=== PATIENT | male | born 1950 | race Caucasian/White ===

== ENCOUNTER → 2016-09-08 | Outpatient (CLI) | payer MEDICARE, OTHER ==
--- NOTE | 2016-09-08 14:06 | MR ---
EXAMINATION TYPE: MR lumbar spine wo con DATE OF EXAM: 09/08/2016 1:51 PM COMPARISON: NONE HISTORY: low back pain Multiplanar, MultiSpin echo imaging of the lumbar spine was performed. L1-L2: Normal disc appearance without desiccation. No herniation, protrusion or disc bulging. No ca nal stenosis is present. Foramina are patent bilaterally. L2-L3: Normal disc appearance without desiccation. No herniation, protrusion or disc bulging. No ca nal stenosis is present. Foramina are patent bilaterally. L3-L4: Normal disc appearance without desiccation. No herniation, protrusion or disc bulging. No ca nal stenosis is present. Foramina are patent bilaterally. L4-L5: Moderate disc desiccation. Posterior disc bulge with annular tear. Mild effacement ventral sac . No evidence for allen herniation or central stenosis. Mild left foraminal encroachment. Grade 1 ant erolisthesis of L4 and L5 of 2 mm related to severe facet joint arthropathy. L5-S1: Severe disc desiccation. Grade 1 retrolisthesis of L5 on S1 measuring 7.4 mm. Moderate right p aracentral disc bulge with encapsulating spur resulting in hard disc. There is right lateral recess s tenosis and right foraminal encroachment. Lumbar segments are intact. No paraspinal masses are identified. Conus medullaris has a normal appe arance. IMPRESSION: 1. Degenerative disc disease as discussed. 2. Right paracentral disc endplate complex resulting in right lateral recess stenosis and right daina inal encroachment. 3 multilevel listhesis as noted.
== END | disposition home or self-care (01) ==
LOC: RADMRIMAIN 13:17
PROVIDERS: ATTEND Internal Medicine
DX: M48.06 Spinal stenosis, lumbar region (principal); M51.36 Other intervertebral disc degeneration, lumbar region; M43.16 Spondylolisthesis, lumbar region
CPT/HCPCS: 72148

== ENCOUNTER 2017-04-09 19:50 | Observation (INO) | payer MEDICARE, OTHER ==
--- NOTE | 2017-04-09 21:21 | ED ---
Extremity Problem HPI - General Source: patient Mode of arrival: ambulatory Limitations: no limitations <Tracey Crhistina - Last Filed: 04/10/17 02:04> <Jakub Nacsimento - Last Filed: 04/12/17 01:16> - General Chief complaint: Extremity Problem,Nontraumatic Stated complaint: LE edema Time Seen by Provider: 04/09/17 21:10 - History of Present Illness Initial comments: 66 year-old male patient presents to the emergency department today for complaints of bilateral lower extremity swelling. Patient states that he has had foot swelling for the last couple of months however over the last 2-3 days he started to have the swelling move up into his lower legs. Patient states that his legs feel tight and uncomfortable. He denies any difficulty breathing , orthopnea, or shortness of breath with activity. He denies any cough or congestion. Denies any hemoptysis. Denies any chest pain or tightness. Patient states he does take Lasix 20 mg per day. Patient has a history of pulmonary fibrosis and is status post bilateral lung transplant one year ago. He does take antirejection medications. Patient denies any recent rash, fever, chills, abdominal pain, nausea, vomiting, diarrhea, constipation, back pain, numbness, tingling, dizziness, weakness, hematuria, dysuria, urinary urgency, urinary frequency, headache, visual changes, or any other complaints. (Tracey Christina) - Related Data Home Medications Medication Instructions Recorded Confirmed Aspirin 81 mg PO DAILY 08/28/15 04/09/17 Calcium Carbonate 1250 Mg 1,250 mg PO TID 04/09/17 04/09/17 Ezetimibe [Zetia] 10 mg PO DAILY 04/09/17 04/09/17 Ferrous Sulfate [Iron] 325 mg PO DAILY 04/09/17 04/09/17 HYDROcodone/APAP 10-325MG [[place] 1 tab PO TID PRN 04/09/17 04/09/17 10-325] Magnesium Oxide 800 mg PO BID 04/09/17 04/09/17 Mycophenolate Mofetil [Cellcept] 1,000 mg PO BID 04/09/17 04/09/17 Omeprazole [PriLOSEC] 20 mg PO DAILY 04/09/17 04/09/17 Rosuvastatin Calcium [Crestor] 5 mg PO DAILY 04/09/17 04/09/17 Zolpidem [Ambien] 10 mg PO HS PRN 04/09/17 04/09/17 cycloSPORINE [SandIMMUNE] 25 mg PO QAM 04/09/17 04/09/17 cycloSPORINE [SandIMMUNE] 50 mg PO HS 04/09/17 04/09/17 cycloSPORINE [SandIMMUNE] 100 mg PO HS 04/09/17 04/09/17 cycloSPORINE [SandIMMUNE] 100 mg PO QAM 04/09/17 04/09/17 predniSONE 5 mg PO DAILY 04/09/17 04/09/17 Acyclovir [Zovirax] 400 mg PO BID 04/10/17 04/10/17 Furosemide [Lasix] 20 mg PO DAILY 04/10/17 04/10/17 Insulin NPH Human Isophane 6 unit SQ DAILY 04/10/17 04/10/17 [NovoLIN N] Sulfamethox-Tmp 400-80Mg [Bactrim 1 tab PO MOWEFR 04/10/17 04/10/17 SS 400-80 mg] Previous Rx's Medication Instructions Recorded Gabapentin [Neurontin] 400 mg PO TID #90 cap 06/18/15 Allergies Allergy/AdvReac Type Severity Reaction Status Date / Time No Known Allergies Allergy Verified 04/09/17 21:02 Review of Systems ROS Other: All systems not noted in ROS Statement are negative. <Tracey Christina - Last Filed: 04/10/17 02:04> ROS Other: All systems not noted in ROS Statement are negative. <Jakub Nascimento - Last Filed: 04/12/17 01:16> ROS Statement: Those systems with pertinent positive or pertinent negative responses have been documented in the HPI. Past Medical History Past Medical History: Coronary Artery Disease (CAD), Diabetes Mellitus, Deep Vein Thrombosis (DVT), GERD/Reflux, GI Bleed, Hyperlipidemia, Osteoarthritis (OA ), Pneumonia Additional Past Medical History / Comment(s): HIATAL HERNIA, HX BLEED. KIDNEY STONES. DVT LEG 2006. NEUROPATHY IN FEET. PULMONARY FIBROSIS, LUNGS AT 27%; ON LUNG TRANSPLANT LIST AT [facility] ON O2 5L ATC. PNEUMONIA 07/24/15 EST. History of Any Multi-Drug Resistant Organisms: None Reported Past Surgical History: Heart Catheterization Additional Past Surgical History / Comment(s): EGD. COLONSCOPY. C. CATH 2015. Past Anesthesia/Blood Transfusion Reactions: No Reported Reaction Past Psychological History: Anxiety, Depression Smoking Status: Former smoker Past Alcohol Use History: None Reported Past Drug Use History: None Reported - Past Family History Brother(s) Family Medical History: Cancer <Tracey Christina - Last Filed: 04/10/17 02:04> General Exam Limitations: no limitations General appearance: alert, in no apparent distress, other (This is a pleasant, well-developed, well-nourished adult male patient in no acute distress. Vital signs upon presentation are temperature 90.6 degrees; pulse 97, respirations 18 , blood pressure 154/82, pulse ox 93% on room air.) Eye exam: Present: normal appearance, PERRL, EOMI. Absent: scleral icterus, conjunctival injection, periorbital swelling ENT exam: Present: normal exam, normal oropharynx, mucous membranes moist Respiratory exam: Present: normal lung sounds bilaterally. Absent: respiratory distress, wheezes, rales, rhonchi, stridor Cardiovascular Exam: Present: regular rate, normal rhythm, normal heart sounds. Absent: systolic murmur, diastolic murmur, rubs, gallop, clicks GI/Abdominal exam: Present: soft, normal bowel sounds. Absent: distended, tenderness, guarding, rebound, rigid Extremities exam: Present: full ROM, normal capillary refill, other (Bilateral 3 + pitting lower leg and pedal edema. Skin is pink, warm, and dry. Cap refills less than 3 seconds. Pedal pulses are 2+ and equal bilaterally. No evidence of cellulitis.). Absent: normal inspection, tenderness, pedal edema, joint swelling, calf tenderness Neurological exam: Present: alert, oriented X3, CN II-XII intact Psychiatric exam: Present: normal affect, normal mood Skin exam: Present: warm, dry, intact, normal color. Absent: rash <Tracey Christina M - Last Filed: 04/10/17 02:04> Vital Signs 04/09/17 04/09/17 04/10/17 20:06 22:37 00:15 Temperature 98.6 F Pulse Rate 97 76 75 Respiratory 18 18 18 Rate Blood Pressure 154/82 155/85 157/86 O2 Sat by Pulse 93 L 99 98 Oximetry Medical Decision Making - Lab Data Result diagrams: 04/09/17 21:35 04/09/17 21:35 - Radiology Data Radiology results: report reviewed, image reviewed <Tracey Christina - Last Filed: 04/10/17 02:04> - Lab Data Result diagrams: 04/10/17 06:53 04/10/17 06:53 <ValerianodeshawnJakub - Last Filed: 04/12/17 01:16> - Medical Decision Making 66 year-old male patient presented to the emergency department today for evaluation of lower extremity edema. Physical examination did reveal 3+ pitting edema to the lower leg and foot bilaterally. Labs reviewed and did reveal a hemoglobin of 11.1, BUN 23, creatinine 1.6. BNP was 540. Patient does have a history of bilateral lung transplant one year ago. He does take antirejection medications. I did discuss the case with Dr. Nataly Bundy at [facility] ([phone], patient follows with Dr. Haro) where the patient's transplant was performed. He agrees patient should be admitted, but feels we can hold transfer at this time. He would like to keep in contact with the medical team here to determine if transfer is necessary at a later point. Patient will be admitted to Dr. Naqvi. (Tracey Christina) - Lab Data Lab Results 04/09/17 04/09/17 04/09/17 Range/Units 21:35 21:35 21:35 WBC 9.1 (3.8-10.6) k/uL RBC 3.48 L (4.30-5.90) m/uL Hgb 11.1 L (13.0-17.5) gm/dL Hct 34.3 L (39.0-53.0) % MCV 98.5 (80.0-100.0) fL MCH 31.7 (25.0-35.0) pg MCHC 32.2 (31.0-37.0) g/dL RDW 14.1 (11.5-15.5) % Plt Count 210 (150-450) k/uL Neutrophils % 70 % Lymphocytes % 19 % Monocytes % 8 % Eosinophils % 2 % Basophils % 1 % Neutrophils # 6.3 (1.3-7.7) k/uL Lymphocytes # 1.7 (1.0-4.8) k/uL Monocytes # 0.7 (0-1.0) k/uL Eosinophils # 0.1 (0-0.7) k/uL Basophils # 0.1 (0-0.2) k/uL Sodium 139 (137-145) mmol/L Potassium 4.3 (3.5-5.1) mmol/L Chloride 98 (98-107) mmol/L Carbon Dioxide 30 (22-30) mmol/L Anion Gap 11 mmol/L BUN 23 H (9-20) mg/dL Creatinine 1.60 H (0.66-1.25) mg/dL Est GFR (MDRD) Af Amer 53 (>60 ml/min/1.73 sqM) Est GFR (MDRD) Non-Af 43 (>60 ml/min/1.73 sqM) Glucose 125 H (74-99) mg/dL Calcium 9.7 (8.4-10.2) mg/dL Total Bilirubin 0.9 (0.2-1.3) mg/dL AST 25 (17-59) U/L ALT 23 (21-72) U/L Alkaline Phosphatase 49 (38-126) U/L NT-Pro-B Natriuret Pep 540 pg/mL Total Protein 6.3 (6.3-8.2) g/dL Albumin 4.0 (3.5-5.0) g/dL - Radiology Data Two-view x-ray of the chest shows some coarse interstitial infiltrate in a left long and mainly left lower lobe. The right lung is fairly clear. There is no heart failure. There is a plate on the anterior sternum. There is no pleural effusion. Heart is top normal in size. Impression by Dr. Burks shows some coarse interstitial-type infiltrates in the left lower lobe consistent with fibrosis. There is significant improved aeration of the lungs compared to the old exam. No heart failure. Ultrasound venous Doppler duplex of the bilateral lower extremities was performed, report was reviewed in its entirety. Impression by Dr. Burks shows normal exam with no evidence of deep venous thrombosis in both legs. ( Tracey Christina) Disposition Decision to Admit Reason: Admit from EC Decision Date: 04/09/17 Decision Time: 23:05 <Tracey Christina - Last Filed: 04/10/17 02:04> <Jakub Nascimento - Last Filed: 04/12/17 01:16> Clinical Impression: Acute kidney injury, Lower extremity edema, History of lung transplant Disposition: ADMITTED IP TO THIS HOSP Condition: Serious
[2017-04-09 21:48] LABS: Basophils # (A) 0.1 k/uL (0-0.2); Basophils % (A) 1 %; Eosinophils # (A) 0.1 k/uL (0-0.7); Eosinophils % (A) 2 %; HCT 34.3 % (39.0-53.0); HGB 11.1 gm/dL (13.0-17.5); Lymphocytes # (A) 1.7 k/uL (1.0-4.8); Lymphocytes % (A) 19 %; MCH 31.7 pg (25.0-35.0); MCHC 32.2 g/dL (31.0-37.0); MCV 98.5 fL (80.0-100.0); Mean Platelet Volume 7.3; Monocytes # (A) 0.7 k/uL (0-1.0); Monocytes % (A) 8 %; Neutrophils # (A) 6.3 k/uL (1.3-7.7); Neutrophils % (A) 70 %; Platelet Count 210 k/uL (150-450); RBC 3.48 m/uL (4.30-5.90); RDW 14.1 % (11.5-15.5); WBC 9.1 k/uL (3.8-10.6)
[2017-04-09 21:56] LABS: Calcium 9.7 mg/dL (8.4-10.2); Potassium 4.3 mmol/L (3.5-5.1); Total Bilirubin 0.9 mg/dL (0.2-1.3); Total Protein 6.3 g/dL (6.3-8.2)
--- NOTE | 2017-04-09 22:02 | XR ---
EXAMINATION TYPE: XR chest 2V DATE OF EXAM: 04/09/2017 COMPARISON: 06/12/2015 HISTORY: Chest pain TECHNIQUE: Frontal and lateral views of the chest are obtained. FINDINGS: There is some coarse interstitial infiltrate in the left lung and mainly left lower lobe. The right lung is fairly clear. There is no heart failure. There is a plate on the anterior sternum. There is no pleural effusion. Heart is top normal in size. IMPRESSION: There are some coarse interstitial type infiltrates in the left lower lobe consistent wi th fibrosis. There is significant improved aeration of the lungs compared to the old exam. No heart f ailure.
[2017-04-09] MEDS ORDERED: NALOXONE 0.4 MG/ML 1 ML VIAL IV PRN (23:02)
--- NOTE | 2017-04-09 23:43 | US ---
EXAMINATION TYPE: US venous doppler duplex LE DATE OF EXAM: 04/09/2017 11:35 PM COMPARISON: NONE CLINICAL HISTORY: Pain. Hx of DVT in left leg 2006. Bilateral leg swelling. No pain. No redness. St opped blood thinners for a renal bx he has on Wednesday. SIDE PERFORMED: Bilateral TECHNIQUE: The lower extremity deep venous system is examined utilizing real time linear array sonog rodri with graded compression, doppler sonography and color-flow sonography. VESSELS IMAGED: External Iliac Vein (EIV) Common Femoral Vein Deep Femoral Vein Greater Saphenous Vein * Femoral Vein Popliteal Vein Small Saphenous Vein * Proximal Calf Veins (* superficial vessels) Right Leg: Appears negative for DVT Left Leg: Appears negative for DVT IMPRESSION: Normal exam. No evidence of deep venous thrombosis in both legs.
[2017-04-10 01:00] VITALS: BMI 31.1
[2017-04-10 07:02] LABS: Glucose,Whole Blood 121 mg/dL (75-99)
[2017-04-10 07:28] LABS: Basophils % (A) 1 %; Eosinophils # (A) 0.2 k/uL (0-0.7); Eosinophils % (A) 2 %; HCT 32.8 % (39.0-53.0); HGB 10.6 gm/dL (13.0-17.5); Lymphocytes # (A) 1.5 k/uL (1.0-4.8); Lymphocytes % (A) 22 %; MCH 31.7 pg (25.0-35.0); MCHC 32.3 g/dL (31.0-37.0); MCV 98.1 fL (80.0-100.0); Mean Platelet Volume 7.1; Monocytes # (A) 0.6 k/uL (0-1.0); Monocytes % (A) 8 %; Neutrophils # (A) 4.5 k/uL (1.3-7.7); Neutrophils % (A) 65 %; Platelet Count 180 k/uL (150-450); RBC 3.34 m/uL (4.30-5.90); RDW 14.2 % (11.5-15.5); WBC 6.9 k/uL (3.8-10.6)
[2017-04-10 07:48] LABS: Calcium 9.4 mg/dL (8.4-10.2); Potassium 4.5 mmol/L (3.5-5.1)
[2017-04-10 08:55] VITALS: BP 148/77; PULSE 64; RESP 18; TEMP 98.4
[2017-04-10 12:04] LABS: Glucose,Whole Blood 126 mg/dL (75-99)
[2017-04-10] MEDS ORDERED: ZOLPIDEM 10 MG TAB PO PRN (14:35)
[2017-04-10] MEDS ORDERED: HYDROcodone/APAP 10-325MG 1 EACH TAB PO PRN (14:35)
[2017-04-10] MEDS ORDERED: FUROSEMIDE 10 MG/ML 2 ML VIAL IV ONE (14:40)
[2017-04-10] MEDS ORDERED: CALCIUM CARBONATE 500 MG CHEWABLE PO SCH (16:00)
[2017-04-10] MEDS ORDERED: MAGNESIUM OXIDE 400 MG TAB PO SCH (21:00)
[2017-04-10] MEDS ORDERED: cycloSPORINE 100 MG CAP PO SCH (21:00)
[2017-04-10] MEDS ORDERED: cycloSPORINE 25 MG CAP PO SCH (21:00)
[2017-04-10] MEDS ORDERED: MYCOPHENOLATE MOFETIL 500 MG TAB PO SCH (21:00)
--- NOTE | 2017-04-11 00:14 | P.HPIM ---
History of Present Illness H&P Date: 04/10/17 Chief Complaint: Bilateral leg swelling Patient is a 66-year-old male with a known history of bilateral lung transplant , history of coronary artery disease, diabetes type 2, DVT and osteoarthritis and GI bleed came to ER with complaints of bilateral lower extremity swelling.Patient states that he has had foot swelling for the last couple of months however over the last 2-3 days he started to have the swelling move up into his lower legs. Patient states that his legs feel tight and uncomfortable. He denies any difficulty breathing, orthopnea, or shortness of breath with activity. He denies any cough or congestion. Denies any hemoptysis. Denies any chest pain or tightness. Patient states he does take Lasix 20 mg per day. Patient has a history of pulmonary fibrosis and is status post bilateral lung transplant one year ago. He does take antirejection medications. Patient denies any recent rash, fever, chills, abdominal pain, nausea, vomiting , diarrhea, constipation, back pain, numbness, tingling, dizziness, weakness, hematuria, dysuria, urinary urgency, urinary frequency, headache, visual changes , or any other complaints. Bilateral lower extremity duplex is negative for any DVT Review of Systems Constitutional: Patient denies any fever or chills . No generalized weakness or weight loss. Abdomen: Patient denied nausea vomiting and diarrhea and abdominal pain. Cardiovascular: Patient denies any chest pain or short of breath no palpitations.. Leg swelling Respiratory: patient denied any cough is from production. No shortness of breath Neurologic: Patient denied any numbness or tingling headache. Musculoskeletal: Patient denies any complaints of joint swelling or deformity. Skin: Negative Psychiatric: Negative Endocrine: No heat or cold intolerance. No recent weight gain. Genitourinary: No dysuria or hematuria. All other 14 point ROS negative except the above Past Medical History Past Medical History: Coronary Artery Disease (CAD), Diabetes Mellitus, Deep Vein Thrombosis (DVT), GERD/Reflux, GI Bleed, Hyperlipidemia, Osteoarthritis (OA ), Pneumonia Additional Past Medical History / Comment(s): HIATAL HERNIA, HX BLEED. KIDNEY STONES. DVT LEG 2006. NEUROPATHY IN FEET. PULMONARY FIBROSIS, LUNGS AT 27%; ON LUNG TRANSPLANT LIST AT [facility] ON O2 5L ATC. PNEUMONIA 07/24/15 EST. History of Any Multi-Drug Resistant Organisms: None Reported Past Surgical History: Heart Catheterization Additional Past Surgical History / Comment(s): EGD. COLONSCOPY. C. CATH 2015. Past Anesthesia/Blood Transfusion Reactions: No Reported Reaction Past Psychological History: Anxiety, Depression Smoking Status: Former smoker Past Alcohol Use History: None Reported Past Drug Use History: None Reported - Past Family History Brother(s) Family Medical History: Cancer Medications and Allergies Home Medications Medication Instructions Recorded Confirmed Type Gabapentin [Neurontin] 400 mg PO TID #90 cap 06/18/15 04/09/17 Rx Aspirin 81 mg PO DAILY 08/28/15 04/09/17 History Calcium Carbonate 1250 Mg 1,250 mg PO TID 04/09/17 04/09/17 History Ezetimibe [Zetia] 10 mg PO DAILY 04/09/17 04/09/17 History Ferrous Sulfate [Iron] 325 mg PO DAILY 04/09/17 04/09/17 History HYDROcodone/APAP 10-325MG [[place] 1 tab PO TID PRN 04/09/17 04/09/17 History 10-325] Magnesium Oxide 800 mg PO BID 04/09/17 04/09/17 History Mycophenolate Mofetil [Cellcept] 1,000 mg PO BID 04/09/17 04/09/17 History Omeprazole [PriLOSEC] 20 mg PO DAILY 04/09/17 04/09/17 History Rosuvastatin Calcium [Crestor] 5 mg PO DAILY 04/09/17 04/09/17 History Zolpidem [Ambien] 10 mg PO HS PRN 04/09/17 04/09/17 History cycloSPORINE [SandIMMUNE] 25 mg PO QAM 04/09/17 04/09/17 History cycloSPORINE [SandIMMUNE] 50 mg PO HS 04/09/17 04/09/17 History cycloSPORINE [SandIMMUNE] 100 mg PO HS 04/09/17 04/09/17 History cycloSPORINE [SandIMMUNE] 100 mg PO QAM 04/09/17 04/09/17 History predniSONE 5 mg PO DAILY 04/09/17 04/09/17 History Acyclovir [Zovirax] 400 mg PO BID 04/10/17 04/10/17 History Furosemide [Lasix] 20 mg PO DAILY 04/10/17 04/10/17 History Insulin NPH Human Isophane 6 unit SQ DAILY 04/10/17 04/10/17 History [NovoLIN N] Sulfamethox-Tmp 400-80Mg [Bactrim 1 tab PO MOWEFR 04/10/17 04/10/17 History SS 400-80 mg] Allergies Allergy/AdvReac Type Severity Reaction Status Date / Time No Known Allergies Allergy Verified 04/09/17 21:02 Physical Exam Vitals: Vital Signs Temp Pulse Pulse Resp BP BP Pulse Ox 04/10/17 12:00 18 04/10/17 08:00 98.4 F 64 18 148/77 97 04/10/17 03:48 71 16 148/80 95 04/10/17 03:31 16 04/10/17 02:26 16 04/10/17 00:43 98.3 F 76 16 179/84 97 04/10/17 00:31 97.1 F L 04/10/17 00:15 75 18 157/86 98 04/09/17 22:37 76 18 155/85 99 04/09/17 20:06 98.6 F 97 18 154/82 93 L Intake and Output 04/09/17 04/10/17 04/10/17 22:59 06:59 14:59 Other: Voiding Method Toilet Toilet # Voids 2 Weight 104.326 kg 103.6 kg PHYSICAL EXAMINATION: Patient is lying in the bed comfortably, no acute distress, awake alert and oriented.. HEENT: Normocephalic. Neck is supple. Pupils reactive. Nostrils clear. Oral cavity is moist. Ears reveal no drainage. Neck reveals no JVD, carotid bruits, or thyromegaly. CHEST EXAMINATION: Trachea is central. Symmetrical expansion. Lung clemente clear to auscultation and percussion. Minimal crackles. CARDIAC: Normal S1, S2 with no gallops. No murmurs ABDOMEN: Soft. Bowel sounds normal. No organomegaly. No abdominal bruits. Extremities: 2+ pitting edema. No clubbing or cyanosis Neurologically awake, alert, oriented x3 with well-coordinated movements. No focal deficits noted Skin: No rash or skin lesions. Psychiatric: Coperative. Nonsuicidal Musculoskeletal: No joint swelling or deformity. Normal range of motion. Results CBC & Chem 7: 04/10/17 06:53 04/10/17 06:53 Labs: Abnormal Lab Results - Last 24 Hours (Table) 04/09/17 04/09/17 04/10/17 Range/Units 21:35 21:35 06:53 RBC 3.48 L 3.34 L (4.30-5.90) m/uL Hgb 11.1 L 10.6 L (13.0-17.5) gm/dL Hct 34.3 L 32.8 L (39.0-53.0) % BUN 23 H (9-20) mg/dL Creatinine 1.60 H (0.66-1.25) mg/dL Glucose 125 H (74-99) mg/dL POC Glucose (mg/dL) (75-99) mg/dL 04/10/17 04/10/17 04/10/17 Range/Units 06:53 07:00 12:02 RBC (4.30-5.90) m/uL Hgb (13.0-17.5) gm/dL Hct (39.0-53.0) % BUN 24 H (9-20) mg/dL Creatinine 1.60 H (0.66-1.25) mg/dL Glucose 113 H (74-99) mg/dL POC Glucose (mg/dL) 121 H 126 H (75-99) mg/dL Thrombosis Risk Factor Assmnt - DVT/VTE Prophylaxis DVT/VTE Prophylaxis: Pharmacologic Prophylaxis ordered - Choose All That Apply Each Factor Represents 1 point: Abnormal pulmonary function (COPD), Obesity ( BMI >25), Swollen legs (current) Each Risk Factor Represents 2 Points: Age 61-74 years Each Risk Factor Represents 3 Points: History of DVT/PE Thrombosis Risk Factor Assessment Total Risk Factor Score: 8 Thrombosis Risk Factor Assessment Level: High Risk Assessment and Plan Assessment: Bilateral lower swelling likely dependent edema. No history of CHF. DVT negative. BNP 540 and albumin 4.0 History of bilateral lung transplant due to pulmonary fibrosis about one year ago at [facility] History of DVT Diabetes type 2 GERD History of GI bleed Osteoarthritis Bilateral diabetic neuropathy feet DVT prophylaxis Patient will be continued on IV Lasix. Patient does take 20 mg daily. Otherwise patient is not having any chest pain or shortness of breath. Patient says that he has appointment at [facility] on Wednesday. Time with Patient: Greater than 30
--- NOTE | 2017-04-11 00:15 | P.DS ---
Providers Date of admission: 04/10/17 00:23 Expected date of discharge: 04/10/17 Attending physician: Luc Naqvi Primary care physician: Anjum Willis [facility] Course: Discharge diagnosis Bilateral lower swelling likely dependent edema. No history of CHF. DVT negative. BNP 540 and albumin 4.0 History of bilateral lung transplant due to pulmonary fibrosis about one year ago at [facility] History of DVT Diabetes type 2 GERD History of GI bleed Osteoarthritis Bilateral diabetic neuropathy feet DVT prophylaxis Hospital course Patient is a 66-year-old male with a known history of bilateral lung transplant , history of coronary artery disease, diabetes type 2, DVT and osteoarthritis and GI bleed came to ER with complaints of bilateral lower extremity swelling.Patient states that he has had foot swelling for the last couple of months however over the last 2-3 days he started to have the swelling move up into his lower legs. Patient states that his legs feel tight and uncomfortable. He denies any difficulty breathing, orthopnea, or shortness of breath with activity. He denies any cough or congestion. Denies any hemoptysis. Denies any chest pain or tightness. Patient states he does take Lasix 20 mg per day. Patient has a history of pulmonary fibrosis and is status post bilateral lung transplant one year ago. He does take antirejection medications. Patient denies any recent rash, fever, chills, abdominal pain, nausea, vomiting , diarrhea, constipation, back pain, numbness, tingling, dizziness, weakness, hematuria, dysuria, urinary urgency, urinary frequency, headache, visual changes , or any other complaints. Bilateral lower extremity duplex is negative for any DVT Patient was continued on IV Lasix. Patient does take 20 mg daily. Otherwise patient is not having any chest pain or shortness of breath. Patient says that he has appointment at [facility] on Wednesday. Patient did improve clinically. Otherwise patient is stable to be discharged home. Discharge physical examination was done and vitals reviewed. Patient Condition at Discharge: Serious Plan - Discharge Summary New Discharge Prescriptions: Continue Gabapentin [Neurontin] 400 mg PO TID #90 cap Aspirin 81 mg PO DAILY Rosuvastatin Calcium [Crestor] 5 mg PO DAILY Ezetimibe [Zetia] 10 mg PO DAILY Calcium Carbonate 1250 Mg 1,250 mg PO TID Magnesium Oxide 800 mg PO BID predniSONE 5 mg PO DAILY Omeprazole [PriLOSEC] 20 mg PO DAILY Mycophenolate Mofetil [Cellcept] 1,000 mg PO BID cycloSPORINE [SandIMMUNE] 50 mg PO HS cycloSPORINE [SandIMMUNE] 100 mg PO QAM cycloSPORINE [SandIMMUNE] 100 mg PO HS cycloSPORINE [SandIMMUNE] 25 mg PO QAM Ferrous Sulfate [Iron] 325 mg PO DAILY Zolpidem [Ambien] 10 mg PO HS PRN PRN Reason: Insomnia HYDROcodone/APAP 10-325MG [Dillwyn 10-325] 1 tab PO TID PRN PRN Reason: Pain Sulfamethox-Tmp 400-80Mg [Bactrim SS 400-80 mg] 1 tab PO MOWEFR Insulin NPH Human Isophane [NovoLIN N] 6 unit SQ DAILY Acyclovir [Zovirax] 400 mg PO BID Furosemide [Lasix] 20 mg PO DAILY Discharge Medication List Gabapentin [Neurontin] 400 mg PO TID #90 cap 06/18/15 [Rx] Aspirin 81 mg PO DAILY 08/28/15 [History] Calcium Carbonate 1250 Mg 1,250 mg PO TID 04/09/17 [History] Ezetimibe [Zetia] 10 mg PO DAILY 04/09/17 [History] Ferrous Sulfate [Iron] 325 mg PO DAILY 04/09/17 [History] HYDROcodone/APAP 10-325MG [Dillwyn 10-325] 1 tab PO TID PRN 04/09/17 [History] Magnesium Oxide 800 mg PO BID 04/09/17 [History] Mycophenolate Mofetil [Cellcept] 1,000 mg PO BID 04/09/17 [History] Omeprazole [PriLOSEC] 20 mg PO DAILY 04/09/17 [History] Rosuvastatin Calcium [Crestor] 5 mg PO DAILY 04/09/17 [History] Zolpidem [Ambien] 10 mg PO HS PRN 04/09/17 [History] cycloSPORINE [SandIMMUNE] 25 mg PO QAM 04/09/17 [History] cycloSPORINE [SandIMMUNE] 50 mg PO HS 04/09/17 [History] cycloSPORINE [SandIMMUNE] 100 mg PO HS 04/09/17 [History] cycloSPORINE [SandIMMUNE] 100 mg PO QAM 04/09/17 [History] predniSONE 5 mg PO DAILY 04/09/17 [History] Acyclovir [Zovirax] 400 mg PO BID 04/10/17 [History] Furosemide [Lasix] 20 mg PO DAILY 04/10/17 [History] Insulin NPH Human Isophane [NovoLIN N] 6 unit SQ DAILY 04/10/17 [History] Sulfamethox-Tmp 400-80Mg [Bactrim SS 400-80 mg] 1 tab PO MOWEFR 04/10/17 [ History] Follow up Appointment(s)/Referral(s): Anjum Willis DO [Primary Care Provider] - 1-2 days Patient Instructions/Handouts: Edema (DC) Discharge Disposition: HOME SELF-CARE
[2017-04-11] MEDS ORDERED: PANTOPRAZOLE 40 MG TABLET PO SCH (07:30)
[2017-04-11] MEDS ORDERED: FERROUS SULFATE 325 MG TAB PO SCH (09:00)
[2017-04-11] MEDS ORDERED: ASPIRIN 81 MG PO SCH (09:00)
[2017-04-11] MEDS ORDERED: cycloSPORINE 100 MG CAP PO SCH (09:00)
[2017-04-11] MEDS ORDERED: cycloSPORINE 25 MG CAP PO SCH (09:00)
[2017-04-11] MEDS ORDERED: EZETIMIBE 10 MG TAB PO SCH (09:00)
[2017-04-11] MEDS ORDERED: INSULIN NPH 300 UNIT/3 ML VIAL SQ SCH (09:00)
[2017-04-11] MEDS ORDERED: predniSONE 5 MG TAB PO SCH (09:00)
[2017-04-11] MEDS ORDERED: ATORVASTATIN 10 MG TAB PO SCH (09:00)
[2017-04-12] MEDS ORDERED: SULFAMETHOX-TMP 400-80MG 1 EACH TAB PO SCH (09:00)
== END 2017-04-10 15:48 | disposition home or self-care (01) ==
LOC: EC 19:50 → 3OBS 04-10 00:23
PROVIDERS: ADMIT Hospitalist; ATTEND Hospitalist
DX: M79.89 Other specified soft tissue disorders (principal); Z94.2 Lung transplant status; N17.9 Acute kidney failure, unspecified; Z86.718 Personal history of other venous thrombosis and embolism; E78.5 Hyperlipidemia, unspecified; K21.9 Gastro-esophageal reflux disease without esophagitis; M19.90 Unspecified osteoarthritis, unspecified site; E11.40 Type 2 diabetes mellitus with diabetic neuropathy, unspecified; I25.10 Atherosclerotic heart disease of native coronary artery without angina pectoris; F41.9 Anxiety disorder, unspecified; F32.9 Major depressive disorder, single episode, unspecified; Z80.9 Family history of malignant neoplasm, unspecified; Z87.891 Personal history of nicotine dependence; Z87.01 Personal history of pneumonia (recurrent); Z87.442 Personal history of urinary calculi; Z79.82 Long term (current) use of aspirin; Z79.899 Other long term (current) drug therapy; Z79.4 Long term (current) use of insulin; Z79.2 Long term (current) use of antibiotics; Z79.52 Long term (current) use of systemic steroids
CPT/HCPCS: 96374; 99285; 36415; 83880; 80053; 80048; 85025 ×2; 71046; 93970; G0378; J1940

== ENCOUNTER 2017-08-02 15:29 | Emergency (ER) | payer MEDICARE, OTHER ==
[2017-08-02 16:00] LABS: Glucose,Whole Blood 513 mg/dL (75-99)
[2017-08-02] MEDS ORDERED: SODIUM CHLORIDE 0.9% 500 ML IV ONE ×3 (16:09→17:23)
--- NOTE | 2017-08-02 16:12 | ED ---
General Adult HPI - General Chief complaint: Recheck/Abnormal Lab/Rx Stated complaint: High sugar Time Seen by Provider: 08/02/17 15:59 Source: patient, RN notes reviewed, old records reviewed Mode of arrival: ambulatory Limitations: no limitations - History of Present Illness Initial comments: 66 -year-old male presents for evaluation of elevated blood sugar. Patient is proximately 18 months status post bilateral lung transplant for pulmonary fibrosis. He is on chronic daily steroids. He does have history of diabetes which is normally diet control. He is not on any insulin or oral hypoglycemic medication. He states that he has been eating poorly over the past several days to weeks. He has had increased thirst and polyuria. Denies chest pain or shortness of breath. Denies abdominal pain. Denies nausea vomiting or diarrhea. - Related Data Home Medications Medication Instructions Recorded Confirmed Aspirin 81 mg PO DAILY 08/28/15 08/02/17 Calcium Carbonate 1250 Mg 1,250 mg PO BID 04/09/17 08/02/17 Ezetimibe [Zetia] 10 mg PO DAILY 04/09/17 08/02/17 Magnesium Oxide 800 mg PO BID 04/09/17 08/02/17 Rosuvastatin Calcium [Crestor] 5 mg PO HS 04/09/17 08/02/17 predniSONE 5 mg PO DAILY 04/09/17 08/02/17 Acyclovir [Zovirax] 400 mg PO DAILY 04/10/17 08/02/17 Furosemide [Lasix] 20 mg PO BID 04/10/17 08/02/17 Sulfamethox-Tmp 400-80Mg [Bactrim 1 tab PO MOWEFR 04/10/17 08/02/17 SS 400-80 mg] Cyclosporine, Modified [Neoral] 100 mg PO BID 08/02/17 08/02/17 Pregabalin [Lyrica] 150 mg PO BID 08/02/17 08/02/17 Zortress 25mg 75 mg PO BID 08/02/17 08/02/17 cycloSPORINE, MODIFIED [Neoral] 25 mg PO HS 08/02/17 08/02/17 cycloSPORINE, MODIFIED [Neoral] 50 mg PO DAILY 08/02/17 08/02/17 Allergies Allergy/AdvReac Type Severity Reaction Status Date / Time No Known Allergies Allergy Verified 08/02/17 16:15 Review of Systems ROS Statement: Those systems with pertinent positive or pertinent negative responses have been documented in the HPI. ROS Other: All systems not noted in ROS Statement are negative. Past Medical History Past Medical History: Coronary Artery Disease (CAD), Diabetes Mellitus, Deep Vein Thrombosis (DVT), GERD/Reflux, GI Bleed, Hyperlipidemia, Osteoarthritis (OA ), Pneumonia Additional Past Medical History / Comment(s): HIATAL HERNIA, HX BLEED. KIDNEY STONES. DVT LEG 2006. NEUROPATHY IN FEET. PULMONARY FIBROSIS, LUNGS had bilateral lung transplant 2016 History of Any Multi-Drug Resistant Organisms: None Reported Past Surgical History: Heart Catheterization Additional Past Surgical History / Comment(s): EGD. COLONSCOPY. C. CATH 2015., bilateral lung transplant, esophageal reconstruction Past Anesthesia/Blood Transfusion Reactions: No Reported Reaction Past Psychological History: Anxiety, Depression Smoking Status: Former smoker Past Alcohol Use History: None Reported Past Drug Use History: None Reported - Past Family History Brother(s) Family Medical History: Cancer General Exam Limitations: no limitations General appearance: alert, in no apparent distress Head exam: Present: atraumatic, normocephalic Eye exam: Present: normal appearance, PERRL ENT exam: Present: normal exam Neck exam: Present: normal inspection. Absent: tenderness, meningismus Respiratory exam: Present: normal lung sounds bilaterally. Absent: respiratory distress, wheezes Cardiovascular Exam: Present: regular rate, normal rhythm GI/Abdominal exam: Present: soft. Absent: distended Extremities exam: Present: normal inspection, full ROM, normal capillary refill. Absent: pedal edema Neurological exam: Present: oriented X3, CN II-XII intact. Absent: motor sensory deficit Psychiatric exam: Present: normal affect, normal mood Skin exam: Present: warm, dry, intact. Absent: cyanosis, diaphoretic Course Vital Signs 08/02/17 08/02/17 08/02/17 15:55 16:20 17:00 Temperature 97.6 F Pulse Rate 75 67 60 Respiratory 18 20 18 Rate Blood Pressure 191/93 155/92 164/96 O2 Sat by Pulse 97 98 99 Oximetry Medical Decision Making - Medical Decision Making 60 sexual male with history diabetes normally diet controlled presents with elevated sugar. He is on chronic steroids for history of lung transplant. I did discuss the case with his transplant physician from [facility]. Given the non-compliance with dietary restrictions likely sugar is related to diet and prednisone. No additional management added from covering physician. Laboratory studies are obtained, normal white blood cell count, stable hemoglobin at 11.2 which is improved from 10.6. Stable creatinine 1.43. Blood sugar is 523. Acetone is negative. Anion gap is 15 which is normal. Sodium is low likely secondary to pseudohyponatremia and lactic acid is mildly elevated secondary to dehydration from polyuria. Urinalysis is negative for ketones. It is positive for 4+ glucose. Patient receives IV hydration and insulin. On reevaluation his blood sugar is down trending at 380. Chest x- rays obtained for concern of infection, is negative for pneumonia. Patient will resume his previous diet, he will eat a low carbohydrate diet. He will stay hydrated and follow-up with his primary care physician. - Lab Data Result diagrams: 08/02/17 16:03 08/02/17 16:03 Lab Results 08/02/17 08/02/17 08/02/17 Range/Units 15:58 16:03 16:03 WBC 10.3 (3.8-10.6) k/uL RBC 3.80 L (4.30-5.90) m/uL Hgb 11.2 L (13.0-17.5) gm/dL Hct 32.2 L (39.0-53.0) % MCV 84.7 (80.0-100.0) fL MCH 29.6 (25.0-35.0) pg MCHC 35.0 (31.0-37.0) g/dL RDW 14.4 (11.5-15.5) % Plt Count 163 (150-450) k/uL Neutrophils % 79 % Lymphocytes % 13 % Monocytes % 6 % Eosinophils % 1 % Basophils % 0 % Neutrophils # 8.2 H (1.3-7.7) k/uL Lymphocytes # 1.3 (1.0-4.8) k/uL Monocytes # 0.6 (0-1.0) k/uL Eosinophils # 0.1 (0-0.7) k/uL Basophils # 0.0 (0-0.2) k/uL Sodium 131 L (137-145) mmol/L Potassium 4.2 (3.5-5.1) mmol/L Chloride 93 L (98-107) mmol/L Carbon Dioxide 23 (22-30) mmol/L Anion Gap 15 mmol/L BUN 26 H (9-20) mg/dL Creatinine 1.43 H (0.66-1.25) mg/dL Est GFR (CKD-EPI)AfAm 59 (>60 ml/min/1.73 sqM) Est GFR (CKD-EPI)NonAf 51 (>60 ml/min/1.73 sqM) Glucose 523 H* (74-99) mg/dL POC Glucose (mg/dL) 513 H (75-99) mg/dL POC Glu Documentum Consultant ID PetitKristen [email or web address] Plasma Lactic Acid Carlos Enrique (0.7-2.0) mmol/L Calcium 9.2 (8.4-10.2) mg/dL Total Bilirubin 1.1 (0.2-1.3) mg/dL AST 26 (17-59) U/L ALT 25 (21-72) U/L Alkaline Phosphatase 71 (38-126) U/L Total Protein 6.3 (6.3-8.2) g/dL Albumin 4.1 (3.5-5.0) g/dL Urine Color Urine Appearance (Clear) Urine pH (5.0-8.0) Ur Specific [place] (1.001-1.035) Urine Protein (Negative) Urine Glucose (UA) (Negative) Urine Ketones (Negative) Urine Blood (Negative) Urine Nitrite (Negative) Urine Bilirubin (Negative) Urine Urobilinogen (<2.0) mg/dL Ur Leukocyte Esterase (Negative) Acetone, Qual Negative (Negative) 08/02/17 08/02/17 08/02/17 Range/Units 16:03 16:31 18:20 WBC (3.8-10.6) k/uL RBC (4.30-5.90) m/uL Hgb (13.0-17.5) gm/dL Hct (39.0-53.0) % MCV (80.0-100.0) fL MCH (25.0-35.0) pg MCHC (31.0-37.0) g/dL RDW (11.5-15.5) % Plt Count (150-450) k/uL Neutrophils % % Lymphocytes % % Monocytes % % Eosinophils % % Basophils % % Neutrophils # (1.3-7.7) k/uL Lymphocytes # (1.0-4.8) k/uL Monocytes # (0-1.0) k/uL Eosinophils # (0-0.7) k/uL Basophils # (0-0.2) k/uL Sodium (137-145) mmol/L Potassium (3.5-5.1) mmol/L Chloride (98-107) mmol/L Carbon Dioxide (22-30) mmol/L Anion Gap mmol/L BUN (9-20) mg/dL Creatinine (0.66-1.25) mg/dL Est GFR (CKD-EPI)AfAm (>60 ml/min/1.73 sqM) Est GFR (CKD-EPI)NonAf (>60 ml/min/1.73 sqM) Glucose (74-99) mg/dL POC Glucose (mg/dL) 380 H (75-99) mg/dL POC Glu Documentum Consultant ID Phuong Martinez Plasma Lactic Acid Carlos Enrique 2.8 H* (0.7-2.0) mmol/L Calcium (8.4-10.2) mg/dL Total Bilirubin (0.2-1.3) mg/dL AST (17-59) U/L ALT (21-72) U/L Alkaline Phosphatase (38-126) U/L Total Protein (6.3-8.2) g/dL Albumin (3.5-5.0) g/dL Urine Color Light Yellow Urine Appearance Clear (Clear) Urine pH 5.0 (5.0-8.0) Ur Specific [place] 1.009 (1.001-1.035) Urine Protein Negative (Negative) Urine Glucose (UA) 4+ H (Negative) Urine Ketones Negative (Negative) Urine Blood Negative (Negative) Urine Nitrite Negative (Negative) Urine Bilirubin Negative (Negative) Urine Urobilinogen <2.0 (<2.0) mg/dL Ur Leukocyte Esterase Negative (Negative) Acetone, Qual (Negative) Disposition Clinical Impression: Diabetes mellitus Disposition: HOME SELF-CARE Condition: Good Instructions: Type 2 Diabetes in Adults (ED) Is patient prescribed a controlled substance at d/c from ED?: No Referrals: Anjum Willis DO [Primary Care Provider] - 1-2 days Time of Disposition: 18:35
[2017-08-02 16:22] LABS: Basophils % (A) 0 %; Eosinophils # (A) 0.1 k/uL (0-0.7); Eosinophils % (A) 1 %; HCT 32.2 % (39.0-53.0); HGB 11.2 gm/dL (13.0-17.5); Lymphocytes # (A) 1.3 k/uL (1.0-4.8); Lymphocytes % (A) 13 %; MCH 29.6 pg (25.0-35.0); MCV 84.7 fL (80.0-100.0); Mean Platelet Volume 9.1; Monocytes # (A) 0.6 k/uL (0-1.0); Monocytes % (A) 6 %; Neutrophils # (A) 8.2 k/uL (1.3-7.7); Neutrophils % (A) 79 %; Platelet Count 163 k/uL (150-450); RDW 14.4 % (11.5-15.5); WBC 10.3 k/uL (3.8-10.6)
[2017-08-02 16:28] LABS: ALT 25 U/L (21-72); AST 26 U/L (17-59); Albumin 4.1 g/dL (3.5-5.0); Alkaline Phosphatase 71 U/L (38-126); Anion Gap 15 mmol/L; Blood Urea Nitrogen 26 mg/dL (9-20); Calcium 9.2 mg/dL (8.4-10.2); Carbon Dioxide 23 mmol/L (22-30); Chloride 93 mmol/L (98-107); Potassium 4.2 mmol/L (3.5-5.1); Sodium 131 mmol/L (137-145); Total Bilirubin 1.1 mg/dL (0.2-1.3); Total Protein 6.3 g/dL (6.3-8.2)
[2017-08-02 16:30] LABS: Glucose 523 mg/dL (74-99)
--- NOTE | 2017-08-02 17:19 | XR ---
EXAMINATION TYPE: XR chest 2V DATE OF EXAM: 08/02/2017 COMPARISON: 04/09/2017 HISTORY: Hyperglycemia. Fibrosis TECHNIQUE: Frontal and lateral views of the chest are obtained. FINDINGS: There is no heart failure nor confluent pneumonic infiltrate. There are some small linear density in the left lower lobe. There is a sternal plate. Thoracic spine is intact. IMPRESSION: No active cardio pulmonary disease. Minimal scarring in the left lower lobe. No change.
[2017-08-02] MEDS ORDERED: INSULIN REGULAR 100 UNIT/ML VIAL IV ONE (17:23)
[2017-08-02 17:34] LABS: Appearance,Urine Clear (Clear); Bilirubin,Urine Negative (Negative); Blood,Urine Negative (Negative); Color,Urine Light Yellow; Glucose,Urine (UA) 4+ (Negative); Ketones,Urine Negative (Negative); Leukocyte Esterase,Urine Negative (Negative); Nitrite,Urine Negative (Negative); Protein,Urine Negative (Negative); Specific Gravity,Urine 1.009 (1.001-1.035); Urobilinogen,Urine <2.0 mg/dL (<2.0)
[2017-08-02 18:24] LABS: Glucose,Whole Blood 380 mg/dL (75-99)
[2017-08-02 19:18] VITALS: BP 157/89; PULSE 68; RESP 16; TEMP 98.2
== END 2017-08-02 19:15 | disposition home or self-care (01) ==
LOC: EC 15:29
DX: E11.40 Type 2 diabetes mellitus with diabetic neuropathy, unspecified (principal); I25.10 Atherosclerotic heart disease of native coronary artery without angina pectoris; K21.9 Gastro-esophageal reflux disease without esophagitis; E78.5 Hyperlipidemia, unspecified; M19.90 Unspecified osteoarthritis, unspecified site; F32.9 Major depressive disorder, single episode, unspecified; F41.9 Anxiety disorder, unspecified; Z87.891 Personal history of nicotine dependence; Z86.718 Personal history of other venous thrombosis and embolism; Z79.82 Long term (current) use of aspirin; Z79.899 Other long term (current) drug therapy; Z79.52 Long term (current) use of systemic steroids; Z94.2 Lung transplant status; Z95.818 Presence of other cardiac implants and grafts
CPT/HCPCS: 36415; 71046; 80053; 81003; 82009; 83605; 85025; 96360; 99285

== ENCOUNTER → 2017-12-21 | Outpatient (CLI) | payer MEDICARE, OTHER ==
--- NOTE | 2017-12-21 18:01 | ECHOF ---
Referral Reason:R07.9 Chest Pain, R60.0 Bilateral Leg Edema MEASUREMENTS -------- HEIGHT: 182.9 cm WEIGHT: 104.3 kg BP: RVIDd: 3.1 cm (< 3.3) IVSd: 1.3 cm (0.6 - 1.1) LVIDd: 5.5 cm (3.9 - 5.3) LVPWd: 1.2 cm (0.6 - 1.1) IVSs: 1.7 cm LVIDs: 4.3 cm LVPWs: 1.5 cm LA Diam: 5.0 cm (2.7 - 3.8) LAESV Index (A-L): 42.18 ml/m Ao Diam: 3.8 cm (2.0 - 3.7) AV Cusp: 1.9 cm (1.5 - 2.6) LA Diam: 3.8 cm (2.7 - 3.8) MV EXCURSION: 20.651 mm (> 18.000) MV EF SLOPE: 76 mm/s (70 - 150) EPSS: 1.8 cm MV E Cornelius: 0.74 m/s MV DecT: 128 ms MV A Cornelius: 0.31 m/s MV E/A Ratio: 2.38 RAP: 5.00 mmHg RVSP: 21.56 mmHg FINDINGS -------- Sinus rhythm. This was a technically good study. The left ventricular size is normal. There is borderline concentric left ventricular hypertrophy. Overall left ventricular systolic function is low-normal with, an EF between 50 - 55 %. The right ventricle is normal in size. The left atrium is moderately dilated. LA is severely dilated >40 ml/m2 The right atrial size is normal. There is mild aortic valve sclerosis. There is no evidence of aortic regurgitation. Mild mitral annular calcification present. Moderate mitral regurgitation is present. Mild tricuspid regurgitation present. There is no evidence of pulmonary hypertension. The right v entricular systolic pressure, as measured by Doppler, is 21.56mmHg. Trace/mild (physiologic) pulmonic regurgitation. The aortic root size is normal. There is no pericardial effusion. CONCLUSIONS -------- 1. The left ventricular size is normal. 2. There is borderline concentric left ventricular hypertrophy. 3. Overall left ventricular systolic function is low-normal with, an EF between 50 - 55 %. 4. The right ventricle is normal in size. 5. The left atrium is moderately dilated. 6. LA is severely dilated >40 ml/m2 7. The right atrial size is normal. 8. There is mild aortic valve sclerosis. 9. Mild mitral annular calcification present. 10. Moderate mitral regurgitation is present. 11. Mild tricuspid regurgitation present. 12. There is no evidence of pulmonary hypertension. 13. The right ventricular systolic pressure, as measured by Doppler, is 21.56mmHg. 14. Trace/mild (physiologic) pulmonic regurgitation. 15. The aortic root size is normal. 16. There is no pericardial effusion. [employer] MECHANIC: Melodie Tejada RDCS
== END | disposition home or self-care (01) ==
LOC: RADECHMAIN 15:30
PROVIDERS: ATTEND Internal Medicine
DX: I08.1 Rheumatic disorders of both mitral and tricuspid valves (principal)
CPT/HCPCS: 93306

== ENCOUNTER → 2017-12-30 | Outpatient (CLI) | payer MEDICARE, OTHER ==
--- NOTE | 2017-12-30 15:08 | US ---
EXAMINATION TYPE: US venous doppler duplex LE BI DATE OF EXAM: 12/30/2017 2:51 PM COMPARISON: Prior bilateral venous ultrasound April 09, 2017. CLINICAL HISTORY: M79.662,R22.42,M79 .661,R22.41. SIDE PERFORMED: Bilateral TECHNIQUE: The lower extremity deep venous system is examined utilizing real time linear array sonog rodri with graded compression, doppler sonography and color-flow sonography. VESSELS IMAGED: External Iliac Vein (EIV) Common Femoral Vein Deep Femoral Vein Greater Saphenous Vein * Femoral Vein Popliteal Vein Small Saphenous Vein * Proximal Calf Veins (* superficial vessels) Right Leg: Negative for DVT Left Leg: Negative for DVT Grayscale, color doppler, spectral doppler imaging performed of the deep veins of the bilateral lower extremities. There is normal flow, compressibility, vascular waveforms. IMPRESSION: No ultrasound evidence for acute DVT in either lower extremity. Moderate subcutaneous ed saurabh is appreciated in the bilateral popliteal region on current study similar to prior.
== END ==
LOC: RADUSWWP 14:15
PROVIDERS: ATTEND Internal Medicine
DX: M79.662 Pain in left lower leg (principal); M79.661 Pain in right lower leg; R22.42 Localized swelling, mass and lump, left lower limb; R22.41 Localized swelling, mass and lump, right lower limb
CPT/HCPCS: 93970

== ENCOUNTER → 2018-02-17 | Outpatient (CLI) | payer MEDICARE, OTHER ==
--- NOTE | 2018-02-25 03:30 | MR ---
EXAMINATION TYPE: MR kidney wo/w con DATE OF EXAM: 02/17/2018 COMPARISON: 03/19/2017 MR scan HISTORY: Kidney mass CONTRAST: Standard multiplanar, multisequence MRI departmental protocol utilizing 11 mL intravenous Gadavist ga dolinium contrast. FINDINGS: There is a 3.9 cm rounded exophytic mass at the upper pole of the left kidney. This has mix ed signal and shows some patchy peripheral enhancement at the lower aspect of the mass on the contras t images. The right kidney shows no evidence of a mass. There is no hydronephrosis. There is no evidence of retroperitoneal adenopathy. There are numerous gallstones. Bile ducts are not dilated. Spleen appears normal. There is no evidence of a pancreatic mass. Liver shows no focal defe ct. There is no ascites. IMPRESSION: There is sharply circumscribed exophytic mildly enhancing rounded mass upper pole left kidney that nguyễn s increased from 3 cm to 3.9 cm compared to old exam 1 year ago. This is consistent with a slowly chino wing primary renal tumor.
== END | disposition home or self-care (01) ==
LOC: RADMRIMAIN 12:42
PROVIDERS: ATTEND Urology
DX: N28.89 Other specified disorders of kidney and ureter (principal)
CPT/HCPCS: 74183; A9585

== ENCOUNTER → 2018-02-17 | Outpatient (CLI) | payer MEDICARE, OTHER ==
[2018-02-17 13:01] LABS: Anisocytosis Slight; HCT 33.6 % (39.0-53.0); HGB 11.2 gm/dL (13.0-17.5); MCHC 33.2 g/dL (31.0-37.0); MCV 87.3 fL (80.0-100.0); Mean Platelet Volume 7.9; Platelet Count 211 k/uL (150-450); RBC 3.86 m/uL (4.30-5.90)
[2018-02-17 13:19] LABS: Potassium 4.6 mmol/L (3.5-5.1)
== END ==
LOC: LABPAT 12:19
PROVIDERS: ATTEND Internal Medicine Cardiovascular Disease
DX: Z01.812 Encounter for preprocedural laboratory examination (principal); I34.0 Nonrheumatic mitral (valve) insufficiency; R07.9 Chest pain, unspecified
CPT/HCPCS: 36415; 80051; 82565; 84520; 85027

== ENCOUNTER 2018-03-02 08:04 | Day surgery (SDC) | payer MEDICARE, OTHER ==
[2018-02-28 09:15] VITALS: BMI 30.8
[2018-03-02] MEDS ORDERED: fentaNYL (PF) 50 MCG/ML 2 ML AMP ONE (08:38)
[2018-03-02] MEDS ORDERED: IV FLUID CONTINUATION 400 ML IV ONE (08:47)
[2018-03-02] MEDS: BENZOCAINE SPRAY 1 CAN MUCOUS MEM ONE ×2 (08:52→08:56)
[2018-03-02] MEDS ORDERED: SODIUM CHLORIDE 0.9% 500 ML 500 ML IV ONE (08:55)
[2018-03-02 08:57] LABS: Glucose,Whole Blood 142 mg/dL (75-99)
[2018-03-02] MEDS ORDERED: MIDAZOLAM 2 MG/2 ML VIAL IVP ONE (09:06)
[2018-03-02] MEDS ORDERED: fentaNYL (PF) 50 MCG/ML 2 ML AMP IVP ONE (09:06)
[2018-03-02 09:24] VITALS: RESP 16
--- NOTE | 2018-03-02 10:10 | ECHOT ---
TRANSESOPHAGEAL ECHOCARDIOGRAM INDICATION: Mitral regurgitation. PROCEDURE NOTE: After obtaining informed consent, transesophageal echocardiogram was performed in left lateral position using an Omniplane probe. Local and IV sedation were obtained using Xylocaine spray, 2 mg of Versed and 25 mcg of fentanyl. The patient tolerated the procedure well without any obvious immediate complication. Patient received moderate conscious sedation. Total sedation time was 10 minutes. FINDINGS: 1. Mitral valve appears anatomically normal. There is mild to moderate central mitral regurgitation noted. 2. Left atrium appears mildly enlarged. 3. Right atrium and right ventricle seen within normal limits. 4. There is mild tricuspid regurgitation noted. 5. Aortic valve is a 3-leaflet valve. There is no evidence of aortic stenosis or regurgitation. 6. Interatrial septum: There is no evidence of [id number] shunt by color-flow Doppler or [id number] shunt by agitated saline contrast study. 7. Aorta shows mild atherosclerotic changes. CONCLUSIONS: 1. Normal left ventricular function. 2. Mild to moderate mitral regurgitation. PLAN: I reviewed the transesophageal echocardiogram findings with the patient. No further cardiac workup is needed at this time. His mitral regurgitation is not bad enough for us to do anything at this time. MMODL / IJN: [id number] /
[2018-03-02] MEDS ORDERED: EZETIMIBE 10 MG TAB PO SCH (10:15)
[2018-03-02] MEDS ORDERED: FUROSEMIDE 40 MG TAB PO SCH (10:15)
[2018-03-02] MEDS ORDERED: PREGABALIN 75 MG CAP PO SCH (10:15)
[2018-03-02] MEDS ORDERED: PANTOPRAZOLE 40 MG TABLET PO SCH (10:15)
[2018-03-02] MEDS ORDERED: ASPIRIN 81 MG PO SCH (10:15)
[2018-03-02] MEDS ORDERED: CALCIUM CARBONATE 500 MG CHEWABLE PO SCH (10:15)
[2018-03-02] MEDS ORDERED: SODIUM CHLORIDE 0.9% 1,000 ML IV SCH (10:15)
[2018-03-02] MEDS ORDERED: predniSONE 5 MG TAB PO SCH (10:15)
[2018-03-02 10:34] VITALS: BP 139/66; PULSE 71
[2018-03-02] MEDS ORDERED: CYCLOSPORINE PO SCH (21:00)
[2018-03-02] MEDS ORDERED: NON-FORMULARY DRUG (Rosuvastatin Calcium [Crestor] 5 MG) PO SCH (21:00)
[2018-03-02] MEDS ORDERED: TRAZODONE PO SCH (21:00)
[2018-03-02] MEDS ORDERED: INSULIN DEGLUDEC 20 UNIT SQ SCH (21:00)
[2018-03-03] MEDS ORDERED: ACYCLOVIR 200 MG CAP PO SCH (09:00)
== END 2018-03-02 10:51 | disposition home or self-care (01) ==
LOC: CATHCVL 08:04
PROVIDERS: ATTEND Internal Medicine Cardiovascular Disease
DX: I34.0 Nonrheumatic mitral (valve) insufficiency (principal); R07.89 Other chest pain; E11.9 Type 2 diabetes mellitus without complications; Z79.2 Long term (current) use of antibiotics; Z79.899 Other long term (current) drug therapy; Z79.82 Long term (current) use of aspirin; Z79.4 Long term (current) use of insulin; Z79.52 Long term (current) use of systemic steroids; Z94.2 Lung transplant status
CPT/HCPCS: 93312; 93320; 93325; J2250; J3010